=== PATIENT | male | born 1960 | race Caucasian/White ===

== ENCOUNTER 2019-01-06 06:27 | Day surgery (SDC) | payer OTHER ==
[2019-01-06] MEDS ORDERED: CEFAZOLIN 1 GM INJ (07:00)
[2019-01-06] MEDS ORDERED: DESFLURANE 15 MIN (07:00)
[2019-01-06] MEDS ORDERED: CEFAZOLIN 2 GM/50 ML (PMX) 50 ML IVPB (07:00)
[2019-01-06] MEDS ORDERED: SOD CHLORIDE 0.9% 1,000 ML IV (07:00)
[2019-01-06] MEDS ORDERED: LIDOCAINE 2% (SDV) 5 ML INJ (07:00)
[2019-01-06] MEDS ORDERED: ONDANSETRON 4 MG INJ (07:00)
[2019-01-06] MEDS ORDERED: FENTAnyl 50 MCG/ML VIAL (08:01)
[2019-01-06] MEDS ORDERED: MIDAZOLAM 1 MG/ML 2 ML INJ (08:01)
[2019-01-06] MEDS ORDERED: PROPOFOL 20 ML (08:02)
[2019-01-06] MEDS ORDERED: METOCLOPRAMIDE 10 MG INJ (08:02)
[2019-01-06] MEDS ORDERED: SUCCINYLCHOLINE CHLORIDE 100 MG/5 ML SYG IV (08:04)
[2019-01-06] MEDS ORDERED: ROCURONIUM 50 MG INJ (08:05)
[2019-01-06] MEDS ORDERED: ROPIVACAINE 0.5 % 30 ML VIAL (08:07)
[2019-01-06 08:30] LABS: POTASSIUM 4.5 mmol/L (3.5-5.1)
[2019-01-06] MEDS ORDERED: SUGAMMADEX SODIUM 200 MG/2 ML VIAL IV (08:32)
[2019-01-06] MEDS ORDERED: LABETALOL HCL 20MG INJ IV (09:00)
[2019-01-06] MEDS ORDERED: MEPERIDINE 25 MG INJ IV (09:00)
[2019-01-06] MEDS ORDERED: DIPHENHYDRAMINE 50 MG INJ IV (09:00)
[2019-01-06] MEDS ORDERED: HYDROmorphONE 1 MG/5 ML IV SYRINGE IV ×3 (09:00)
[2019-01-06] MEDS ORDERED: ONDANSETRON 4 MG INJ IV (09:00)
[2019-01-06] MEDS ORDERED: LEVALBUTEROL (NEB) 1.25 MG/0.5 ML AMP HHN (09:00)
[2019-01-06] MEDS ORDERED: FENTAnyl 50 MCG/ML VIAL IV ×2 (09:00)
[2019-01-06] MEDS ORDERED: hydrALAzine 20 MG INJ IV (09:00)
[2019-01-06] MEDS ORDERED: KETOROLAC 30 MG INJ IV (09:00)
[2019-01-06] MEDS ORDERED: HYDROCODONE/APAP (5/325) TAB PO (10:00)
== END 2019-01-06 12:45 | disposition home or self-care (01) ==
LOC: SDS 06:27
DX: K80.80 Other cholelithiasis without obstruction (principal)
CPT/HCPCS: 47562; 84132; 88304